=== PATIENT | male | born 1985 | race African-American/Black ===

== ENCOUNTER 2017-01-12 13:10 | Emergency (ER) | payer SELFPAY ==
[~2017-01-12] VITALS: Ht 182.9 cm; Wt 90.7 kg
--- NOTE | 2017-01-12 13:48 | RAD ---
PA and lateral chest radiographs 01/12/2017. Clinical History: Right sided chest pain worse with deep inspiration for quite some time.. PA and lateral digital radiographs of the chest were obtained. No previous studies are available for comparison. The cardiac and mediastinal silhouettes are within normal limits in size and configuration. No pulmonary infiltrate is seen. No pleural effusion or pneumothorax is noted. The osseous structures are grossly intact. Impression: No radiographic evidence of active cardiopulmonary disease.
[2017-01-12 14:01] LABS: BILIRUBIN,URINE NEGATIVE (NEG); GLUCOSE,URINE NEGATIVE (NEG); NITRITE,URINE NEGATIVE (NEG); PH,URINE 6.5; PROTEIN,URINE NEGATIVE (NEG-TRACE); UROBILINOGEN,URINE 0.2 mg/dL (0.2 mg/dL)
[2017-01-12 14:10] LABS: BACTERIA,URINE 0 /HPF (0-FEW); RBC,URINE 0 /HPF (0-2); SQUAMOUS EPITHELIAL CELL,UR OCC /LPF; WBC,URINE 0 /HPF (0-4)
--- NOTE | 2017-01-12 14:20 | PHYS DOC ---
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 Patient is complaining of right- sided chest pain which she has had for "a while" but is worse today. Patient denies fever, chills, cough, shortness of air, denies nausea or vomiting. Patient is generally healthy. He took some ibuprofen without relief. Coworkers told him they thought it was stomach acid and he tried some Tums without relief. The pain is sometimes worsened by a deep breath but does not make him short of breath. It sometimes worsened when he moves but not always. He's never had this chest pain before a while ago, he cannot be specific. The patient has no chronic medical problems, he takes no medications and he has no primary care physician. Review of Systems Review of Systems Constitutional: Denies fever or chills [] Eyes: Denies change in visual acuity, redness, or eye pain [] HENT: Denies nasal congestion or sore throat [] Respiratory: Denies cough or shortness of breath [] Cardiovascular: As in history of present illness, his chest pain does not sound particularly cardiac GI: Denies abdominal pain, nausea, vomiting, bloody stools or diarrhea [] : Denies dysuria or hematuria [] Musculoskeletal: Denies back pain or joint pain [] Integument: Denies rash or skin lesions [] Neurologic: Denies headache, focal weakness or sensory changes [] Physical Exam Physical Exam Constitutional: Well developed, well nourished, no acute distress, non-toxic appearance. Alert, mentating normally, no respiratory distress HENT: Normocephalic, atraumatic, bilateral external ears normal, oropharynx moist, no oral exudates, nose normal. [] Eyes: conjunctiva normal, no discharge. [] Neck: Normal range of motion, no stridor. [] Cardiovascular:Heart rate regular rhythm, no murmur [] Lungs & Thorax: Bilateral breath sounds clear to auscultation [] Abdomen: Bowel sounds normal, soft, no tenderness, no masses, no pulsatile masses. Skin: Warm, dry, no erythema, no rash. [] Back: No tenderness, no CVA tenderness. [] Extremities: No tenderness, no cyanosis, no clubbing, ROM intact, no edema. [] Neurologic: Alert and oriented X 3, normal motor function, normal sensory function, no focal deficits noted. [] Current Patient Data Vital Signs Vital Signs Date Time Temp Pulse Resp B/P (MAP) Pulse Ox O2 Delivery O2 Flow Rate FiO2 01/12/17 13:15 98.8 73 16 127/62 (83) 98 Room Air 98.8 Lab Values Laboratory Tests Test 01/12/17 13:45 Urine Color Yellow Urine Clarity Clear Urine pH 6.5 Urine Specific [place] 1.020 Urine Protein Negative mg/dL (NEG-TRACE) Urine Glucose (UA) Negative mg/dL (NEG) Urine Ketones (Stick) Negative mg/dL (NEG) Urine Blood Negative (NEG) Urine Nitrite Negative (NEG) Urine Bilirubin Negative (NEG) Urine Urobilinogen Dipstick 0.2 mg/dL (0.2 mg/dL) Urine Leukocyte Esterase Negative (NEG) Urine RBC 0 /HPF (0-2) Urine WBC 0 /HPF (0-4) Urine Squamous Epithelial Cells Occ /LPF Urine Bacteria 0 /HPF (0-FEW) EKG EKG 12-lead EKG read by me. Sinus rhythm. Heart rate 72. There are no acute ST or T wave changes indicative of ischemia or infarction. No STEMI. 1314 [] Radiology/Procedures Radiology/Procedures Two-view chest x-ray read by the radiologist. Reviewed by me as well. No acute cardiopulmonary abnormality. No other abnormality noted. [] Course & Med Decision Making Course & Med Decision Making Pertinent Labs and Imaging studies reviewed. (See chart for details) Young healthy 31-year-old man with no cardiac risk factors presents with right sided intermittent chest discomfort for "a while" that does not sound cardiac, chest x-ray and EKG normal. 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 The patient rested comfortably in the ED with no further complaints and remained stable. See instructions for plan. [] Dragon Disclaimer Dragon Disclaimer This electronic medical record was generated, in whole or in part, using a voice recognition dictation system. Departure Departure Impression: Primary Impression: Pleuritic chest pain Disposition: HOME, SELF-CARE Condition: STABLE Referrals: GONZALO BLACKWELL MD Patient Instructions: Chest Wall Pain, [id number] Additional Instructions: Today, tests did not show anything serious causing your chest pain. Sometimes we do not know what causes the pain but when we look for serious causes and do not find any, it is safe to let you be discharged. Drink plenty of fluids all day because you work out in the heat. You want your urine to be light yellow like lemonade in color. That indicates that you have enough fluid in your system. If the pain persists, follow up with a primary care doctor for further evaluation. LISSETH PARK MD Jan 12, 2017 14:20
[2017-01-12 14:26] VITALS: BP 126/72
--- NOTE | 2017-01-12 15:53 | EKG ---
[facility] [address] [place] [address] Test Date: 2017-01-12 Test Time: 13:14:46 Pat Name: ROSEMARIE ALVAREZ Department: Room: Gender: M [employer]: : 1985 Requested By: LISSETH PARK Order Number: [id number] Reading MD: Gal Quintero Measurements Intervals [place] Rate: 72 P: 36 ND: 156 QRS: -6 QRSD: 98 T: 26 QT: 356 QTc: 396 Interpretive Statements SINUS RHYTHM LEFTWARD AXIS NONSPECIFIC ST-T WAVE CHANGES. RI6.01 No previous ECG available for comparison Electronically Signed On 01-16-2017 10:35:20 CDT by Gal Quintero
== END 2017-01-12 14:26 | disposition home or self-care (01) ==
LOC: ER 13:10
DX: R07.81 Pleurodynia (principal); R06.02 Shortness of breath
CPT/HCPCS: 71020; 81001; 93005; 99285-25